=== PATIENT | female | born 2000 | race Two or more races ===

== ENCOUNTER 2023-04-20 11:05 | Emergency (ER) | payer MEDICAID, OTHER ==
[~2023-04-20] VITALS: Ht 170.2 cm; Wt 69.4 kg
[2023-04-20 12:46] LABS: Urine Bacteria NONE SEEN /hpf (None Seen); Urine Blood 3+ /uL (Negative); Urine Clarity HAZY (Clear); Urine Color Yellow (Yellow); Urine Mucus FEW (None Seen); Urine Protein, UAD 2+ (Negative); Urine Specific Gravity 1.025 (1.001-1.035); Urine Urobilinogen Normal (Negative); Urine WBC 711 /hpf (0 - 5)
[2023-04-20 13:59] VITALS: BP 104/75; PULSE 92; RESP 20; TEMP 98; O2SAT 95
[2023-04-20] MEDS ORDERED: cefTRIAXone SOD 1,000 MG VL IM ONE (14:45)
[2023-04-20] MEDS ORDERED: DOXY-286 PO (14:45)
[2023-04-22 15:06] LABS: Chlamydia Trachomatis, NAA Positive (Negative); Neisseria gonorrhoeae, NAA Positive (Negative)
== END 2023-04-20 15:21 | disposition home or self-care (01) ==
LOC: ER 11:05
DX: N39.0 Urinary tract infection, site not specified (principal)
CPT/HCPCS: 81001; 81025; 87491; 87591; 96372; 99283; J0696